=== PATIENT | female | born 1965 | race Caucasian/White ===

== ENCOUNTER 2017-09-25 19:18 | Emergency (ER) | payer SELFPAY ==
[~2017-09-25] VITALS: Ht 162.6 cm; Wt 97.1 kg
[2017-09-25 21:55] VITALS: BP 145/85
== END 2017-09-25 21:56 | disposition home or self-care (01) ==
LOC: EME 19:18 → RME 19:18
PROC: 2W3DX1Z Immobilization of Left Lower Arm using Splint (ICD-10-PCS; principal; 2017-09-25)
DX: S52.592A Other fractures of lower end of left radius, initial encounter for closed fracture (principal); Y93.54 Activity, bowling; W01.0XXA Fall on same level from slipping, tripping and stumbling without subsequent striking against object, initial encounter
CPT/HCPCS: 73110